=== PATIENT | female | born 1985 | race Caucasian/White ===

== ENCOUNTER 2017-04-04 07:10 | Emergency (ER) | payer OTHER ==
[~2017-04-04] VITALS: Ht 157.5 cm; Wt 64.9 kg
[2017-04-04 07:23] VITALS: BP 116/76
[2017-04-04] MEDS ORDERED: IV DEXTROSE 5% - 0.9 % NACL 1,000 ML IV ONE (07:30)
--- NOTE | 2017-04-04 07:35 | PHYS DOC ---
Past Medical History Additional Past Medical Histor: Adult General Chief Complaint Chief Complaint: VOMITING IN HPI HPI Patient is a 32 year old female who presents with nausea and vomiting. Pt reports she is 13 weeks from [place], no vag bleeding or discharge, no vag fluid. Pt only has abdominal pain when actively vomiting. She's had hyperemesis gravidarum with this and last , better controlled this with zofran, reglan and pepcid. Required PICC line first . Vomiting uncontrolled since yesterday. No dysuria or fevers. Review of Systems Review of Systems Constitutional: Denies fever or chills [] Eyes: Denies change in visual acuity, redness, or eye pain [] HENT: Denies nasal congestion or sore throat [] Respiratory: Denies cough or shortness of breath [] Cardiovascular: Denies chest pain GI: per hpi : Denies dysuria or hematuria [] Musculoskeletal: Denies back pain or joint pain [] Integument: Denies rash or skin lesions [] Neurologic: Denies headache, focal weakness or sensory changes [] Current Medications Current Medications Current Medications Medications (Trade) Dose Ordered Sig/Mane Start Time Stop Time Status Last Admin Dose Admin Dextrose/Sodium Chloride 1,000 ml @ 0 mls/hr 1X ONCE 04/04/17 07:30 04/04/17 07:47 DC 04/04/17 08:00 0 MLS/HR Ondansetron HCl (Zofran) 4 mg 1X ONCE 04/04/17 07:45 04/04/17 07:47 DC 04/04/17 07:55 4 MG Allergies Allergies Allergies Coded Allergies Type Severity Reaction Last Updated Verified No Known Drug Allergies 04/04/17 No Physical Exam Physical Exam Constitutional: Well developed, well nourished, no acute distress, non-toxic appearance. [] HENT: Normocephalic, atraumatic, bilateral external ears normal, oropharynx slightly dry, no oral exudates, nose normal. [] Eyes: PERRLA, EOMI, conjunctiva normal, no discharge. [] Neck: Normal range of motion, no tenderness, supple, no stridor. [] Cardiovascular:Heart rate regular with regular rhythm, no murmur [] Lungs & Thorax: Bilateral breath sounds clear to auscultation, no wheeze or crackles Abdomen: Bowel sounds normal, soft, no tenderness, no masses, no pulsatile masses. no guarding, no peritoneal signs Skin: Warm, dry, no erythema, no rash. [] Back: No tenderness, no CVA tenderness. [] Extremities: No tenderness, no cyanosis, no clubbing, ROM intact, no edema. [] Neurologic: Alert and oriented X 3, normal motor function, normal sensory function, no focal deficits noted. [] Psychologic: Affect normal, judgement normal, mood normal. [] Current Patient Data Vital Signs Vital Signs Date Time Temp Pulse Resp B/P (MAP) Pulse Ox O2 Delivery O2 Flow Rate FiO2 04/04/17 07:23 98.6 110 19 116/76 (89) 99 Room Air 98.6 Lab Values Laboratory Tests Test 04/04/17 07:17 Urine Collection Type Unknown Urine Color Yellow Urine Clarity Cloudy Urine pH 6.5 Urine Specific [place] >=1.030 Urine Protein Negative mg/dL (NEG-TRACE) Urine Glucose (UA) Negative mg/dL (NEG) Urine Ketones (Stick) 15 mg/dL (NEG) Urine Blood Negative (NEG) Urine Nitrite Negative (NEG) Urine Bilirubin Negative (NEG) Urine Urobilinogen Dipstick 1.0 mg/dL (0.2 mg/dL) Urine Leukocyte Esterase Large (NEG) Urine RBC Occ /HPF (0-2) Urine WBC >40 /HPF (0-4) Urine Squamous Epithelial Cells Many /LPF Urine Bacteria Moderate /HPF (0-FEW) Urine Mucus Slight /LPF EKG EKG [] Radiology/Procedures Radiology/Procedures BSUS performed by me shows IUP with movement and heartbeat[] Course & Med Decision Making Course & Med Decision Making Pertinent Labs and Imaging studies reviewed. (See chart for details) Pt given D5NS, zofran IV, istat BMP and UA ordered. + UTI, improved after meds/fluids. HR improved. DC'd with keflex, return precautions, f/u with OB Dragon Disclaimer Dragon Disclaimer This electronic medical record was generated, in whole or in part, using a voice recognition dictation system. Departure Departure Impression: Primary Impression: UTI in Disposition: 01 HOME, SELF-CARE Condition: IMPROVED Scripts Cephalexin (KEFLEX) 500 Mg Capsule 1 CAP PO BID, #[id number] CAP Prov: RIDDHI NJ MD 04/04/17 RIDDHI NJ MD Apr 04, 2017 07:35
[2017-04-04 07:45] LABS: BILIRUBIN,URINE NEGATIVE (NEG); GLUCOSE,URINE NEGATIVE (NEG); NITRITE,URINE NEGATIVE (NEG); PH,URINE 6.5; PROTEIN,URINE NEGATIVE (NEG-TRACE)
[2017-04-04] MEDS ORDERED: ONDANSETRON PF 4 MG/2 ML VIAL. IV ONE (07:45)
[2017-04-04 07:53] LABS: BACTERIA,URINE MODERATE /HPF (0-FEW); RBC,URINE OCC /HPF (0-2); SQUAMOUS EPITHELIAL CELL,UR MANY /LPF; WBC,URINE >40 /HPF (0-4)
[2017-04-04] MEDS ORDERED: CEPH-264 PO (08:35)
[2017-04-05 15:18] LABS: POTASSIUM ISTAT 3.6 mmol/L (3.5-5.0)
== END 2017-04-04 08:50 | disposition home or self-care (01) ==
LOC: ER 07:10
DX: O23.41 Unspecified infection of urinary tract in pregnancy, first trimester (principal); Z3A.13 13 weeks gestation of pregnancy
CPT/HCPCS: 80047; 81001; 87086; 96361; 96374; 99285; J2405; J7042